=== PATIENT | male | born 1990 | race Caucasian/White ===

== ENCOUNTER 2020-04-09 19:49 | Emergency (ER) | payer SELFPAY ==
[~2020-04-09] VITALS: Ht 170.2 cm; Wt 68.0 kg
[2020-04-09 19:54] VITALS: BP 117/83
[2020-04-09] MEDS ORDERED: ONDANSETRON 4 MG ODT PO ONE (20:10)
--- NOTE | 2020-04-09 20:48 | NUR ---
AMBULATED TO ER BED 4
[2020-04-09 21:30] VITALS: BP 117/83
== END 2020-04-09 21:30 | disposition home or self-care (01) ==
LOC: EDBD → MED 19:49
DX: R11.2 Nausea with vomiting, unspecified (principal); Z88.8 Allergy status to other drugs, medicaments and biological substances
CPT/HCPCS: 99283; Q0162

== ENCOUNTER 2020-04-10 19:42 | Inpatient (IN) | payer MEDICAID, SELFPAY ==
[~2020-04-10] VITALS: Ht 167.6 cm; Wt 72.1 kg
[2020-04-10 19:45] VITALS: BP 130/99
--- NOTE | 2020-04-10 19:48 | NUR ---
TO LOBBY A/W BED AMBULATORY
--- NOTE | 2020-04-10 20:05 | NUR ---
PT TAKEN TO ER BED 5 VIA W/C.
--- NOTE | 2020-04-10 20:15 | NUR ---
29 Y/O MALE BIB SELF WITH C/O EPIGASTRIC PAIN AND VOMITING X 4 DAYS, PT STATES HE CAME IN YESTERDAY AND WAS GIVEN ONDASENTRON FOR THE EXCESSIVE VOMITING WITH INEFFECTIVE RESULTS. HE REPORTS ALSO HAVING CONSTIPATION AND NOT BEING ABLE TO GO TO THE BATHROOM X 4 DAYS. ABDOMEN WAS FLAT SOFT AND NON-DISTENDED. HE WAS OBSERVED GUARDING AREA. BOWEL SOUNDS WERE ACTIVE X4 QUADRANTS. BED WAS LOCKED AND PLACED IN LOWEST POSITION. SIDE RAIL UP X 1. PMHX: DIABETES ALLX: METOCLOPRAMINE
--- NOTE | 2020-04-10 20:36 | NUR ---
22 G IV SITE ESTABLISHED TO R AC, SITE WAS PATENT FLUSHED WITH 10 ML OF 0.9% NS. NO REDNESS, SWELLING OR ONFILTARTION NOTED. BLOOD WAS DRAWN.
--- NOTE | 2020-04-10 20:47 | NUR ---
IRAIS COLLIER AT BEDSIDE EVALUATING PT.
--- NOTE | 2020-04-10 21:00 | NUR ---
SIA SWAB COLLECTED AND WALKED TO LAB.
[2020-04-10] MEDS ORDERED: NACL 0.9% 1,000 ML IV ONE ×2 (21:10→22:15)
[2020-04-10 21:33] LABS: BASOPHILS % (AUTO) 0.2 % (0.0-2.0); LYMPHOCYTES # (AUTO) 0.7 K/uL (2.0-11.5); LYMPHOCYTES % (AUTO) 14.8 % (20.5-51.1); MEAN CORPUSCULAR HEMOGLOBIN 29 pg (27-31); MEAN CORPUSCULAR HGB CONC 33 g/dL (33-37); MEAN CORPUSCULAR VOLUME 86.7 fL (80-94); MONOCYTES # (AUTO) 0.5 K/uL (0.8-1.0); MONOCYTES % (AUTO) 11.5 % (1.7-9.3); NEUTROPHILS # (AUTO) 3.4 K/uL (1.8-7.7); NEUTROPHILS % (AUTO) 73.5 % (42.2-75.2); PLATELET COUNT (AUTO) 217 K/uL (140-450); RED BLOOD CELL COUNT(AUTO) 4.85 MIL/uL (4.20-6.10); RED CELL DISTRIBUTION WIDTH 12.9 % (11.6-13.7); WHITE BLOOD COUNT (AUTO) 4.7 K/uL (4.8-10.8)
--- NOTE | 2020-04-10 21:43 | NUR ---
US BEING DONE AT BEDSIDE.
--- NOTE | 2020-04-10 21:47 | NUR ---
PT PROVIDED UA SAMPLE AND EMPTIED URINAL WITH 600 ML OF CLEAR YELLOW URINE.
[2020-04-10 21:52] LABS: ALBUMIN 2.9 g/dL (3.4-5.0); ANION GAP 25.2 (8-16); ASPARTATE AMINOTRANSFERASE 18 U/L (15-37); CARBON DIOXIDE 14.6 mmol/L (21-32); CHLORIDE 94 mmol/L (98-107); GFR ARICAN-AMERICAN 51 mL/min (>90); LIPASE 133 U/L (73-393); POTASSIUM 4.8 mmol/L (3.5-5.1); SODIUM SERUM 129 mmol/L (136-145); TOTAL BILIRUBIN 0.4 mg/dL (0.0-1.0); UREA NITROGEN, BLOOD 23 mg/dL (7-18)
[2020-04-10 21:55] LABS: GLUCOSE 451 mg/dL (74-106)
[2020-04-10 21:56] LABS: ACETONE, SERUM SMALL (NEGATIVE)
--- NOTE | 2020-04-10 22:01 | NUR ---
CRITICAL LAB---GLUCOSE 451 & ACETONE (+) SMALL. NOTIFIED DR. COOK GAVE NO NEW ORDERS AT THIS TIME.
[2020-04-10 22:20] LABS: APPEARANCE,URINE HAZY (CLEAR); BILIRUBIN,URINE 1+ (NEGATIVE); BLOOD, URINE 3+ (NEGATIVE); COLOR,URINE YELLOW (YELLOW); LEUKOCYTE ESTERASE ,URINE NEGATIVE (NEGATIVE); NITRITE, URINE NEGATIVE (NEGATIVE); PH,URINE 5.5 (5.0-9.0); UGLUCOSE 3+ (NEGATIVE)
--- NOTE | 2020-04-10 22:27 | NUR ---
Respiratory Therapist at bedside for ABG blood draw.
[2020-04-10 22:29] LABS: WBC,URINE 0 /HPF (0-5)
--- NOTE | 2020-04-10 22:43 | NUR ---
CRITICAL LAB---SIA COVID (+). NOTIFIED DR. COOK GAVE NO NEW ORDERS.
[2020-04-10] MEDS ORDERED: INSULIN REGULAR, HUMAN 100 UNIT/ML VIAL IVP ONE (22:45)
--- NOTE | 2020-04-10 22:50 | NUR ---
PT MOVED TO BED #8
[2020-04-10] MEDS ORDERED: ONDANSETRON 4 MG TAB PO PRN (23:15)
[2020-04-10] MEDS ORDERED: DEXT 5% / NACL 0.45% 1,000 ML IV PRN (23:40)
[2020-04-10] MEDS ORDERED: INSULIN REGULAR, HUMAN 100 UNIT in NACL 0.9% 100 ML IV SCH ×2 (23:40)
[2020-04-10] MEDS ORDERED: BLOOD GLUCOSE MONITORING 1 DEV DEV FS SCH (23:47)
[2020-04-11] VITALS (21 sets, daily range): BP systolic 74–117; BP diastolic 46–84
--- NOTE | 2020-04-11 00:27 | NUR ---
ATTEMPTED TO CALL [facility] () ----> [phone]. NO ANSWER AT THIS TIME VOICEMAIL LEFT.
--- NOTE | 2020-04-11 00:40 | NUR ---
ACCUCHECK AT 250.
--- NOTE | 2020-04-11 00:45 | NUR ---
Patient will be admitted to care of Dr. Wood. Admited to ICU. Will go to room 5. Belongings list completed. Report given to DAVID RN AT BEDSIDE FOR CONTINUITY OF CARE. ALL COVID PRECAUTIONS IN PLACE.
--- NOTE | 2020-04-11 01:00 | NUR ---
ADMITTED FROM ER [facility] DIAGNOSIS OF DKA PATIENT IS AWAKE ALERT AND ORIENTED IN NO ACUTE DISTRESS PATIENT IS IN SINUS TACH ,RESPIRATION IS REGULAR SKIN IS VERY DRY ACCORDING TO PATIENT HE HAS BEEN VOMITING AT HOME BUT IN ER THERE IS NO VOMITING EPISODE.IV IS IN RIGHT ANTECUBIT STARTED TO INFUSE NORMAL SALINE AT 150CC/HR.BLOOD SUGAR CHECK IS 289.INSULIN DRIP COMMENCE.ACCORDING TO PROTOCOL.
[2020-04-11] MEDS: NACL 0.9% 1,000 ML IV SCH ×4 (01:30→22:10)
[2020-04-11] MEDS ORDERED: INSULIN REGULAR, HUMAN 100 UNIT in NACL 0.9% 100 ML IV SCH ×2 (02:15)
[2020-04-11] MEDS: BLOOD GLUCOSE MONITORING 1 DEV DEV FS SCH ×21 (03:04→23:56)
[2020-04-11 06:18] LABS: BASOPHILS % (AUTO) 0.1 % (0.0-2.0); HEMATOCRIT 34.3 % (36-52); HEMOGLOBIN 11.4 g/dL (12.0-18.0); LYMPHOCYTES # (AUTO) 0.6 K/uL (2.0-11.5); LYMPHOCYTES % (AUTO) 16.6 % (20.5-51.1); MEAN CORPUSCULAR HEMOGLOBIN 29 pg (27-31); MEAN CORPUSCULAR HGB CONC 33 g/dL (33-37); MEAN CORPUSCULAR VOLUME 85.8 fL (80-94); MONOCYTES # (AUTO) 0.2 K/uL (0.8-1.0); MONOCYTES % (AUTO) 4.9 % (1.7-9.3); NEUTROPHILS # (AUTO) 2.9 K/uL (1.8-7.7); NEUTROPHILS % (AUTO) 78.4 % (42.2-75.2); PLATELET COUNT (AUTO) 188 K/uL (140-450); WHITE BLOOD COUNT (AUTO) 3.6 K/uL (4.8-10.8)
[2020-04-11 06:24] LABS: PHOSPHORUS 2.7 mg/dL (2.5-4.9)
[2020-04-11 06:42] LABS: ALBUMIN 2.2 g/dL (3.4-5.0); ANION GAP 30.2 (8-16); CREATININE 1.7 mg/dL (0.6-1.3); POTASSIUM 4.4 mmol/L (3.5-5.1); TOTAL BILIRUBIN 0.4 mg/dL (0.0-1.0)
[2020-04-11 06:52] LABS: CARBON DIOXIDE 9.2 mmol/L (21-32)
[2020-04-11] MEDS ORDERED: LORazepam 2 MG/ML VIAL IM/IVP PRN (07:05)
[2020-04-11] MEDS ORDERED: DOCUSATE SODIUM 100 MG GELCAP PO PRN (07:05)
[2020-04-11] MEDS ORDERED: MORPHINE SULFATE 2 MG/ML SYR IVP PRN (07:05)
[2020-04-11] MEDS ORDERED: HYDROcodone/APAP 5/325 MG 1 TAB TAB PO PRN (07:05)
[2020-04-11] MEDS ORDERED: ZOLPIDEM 5 MG TAB PO PRN (07:05)
[2020-04-11] MEDS ORDERED: ACETAMINOPHEN 325 MG TAB PO PRN (07:05)
[2020-04-11] MEDS ORDERED: ONDANSETRON 4 MG/2 ML VIAL IVP PRN (07:05)
[2020-04-11] MEDS ORDERED: ALBUTEROL HFA MDI 90 MCG/ACTUATION 8 GM INH PRN (07:05)
[2020-04-11 08:54] LABS: PROTHROMBIN TIME 10.7 secs (10.8-13.4)
[2020-04-11 08:56] LABS: MAGNESIUM 2.2 mg/dL (1.8-2.4); PHOSPHORUS 2.8 mg/dL (2.5-4.9)
[2020-04-11] MEDS: ZINC SULF 220 MG CAP PO SCH ×2 (09:00→09:34)
[2020-04-11] MEDS ORDERED: AZITHROMYCIN 250 MG TAB PO SCH (09:00)
[2020-04-11] MEDS: VITAMIN D 400 IU TAB PO SCH ×2 (09:00→09:34)
--- NOTE | 2020-04-11 09:04 | NUR ---
PATIENT HAS BEEN SCREENED AND CATEGORIZED HIGH NUTRITION RISK. PATIENT WILL BE SEEN WITHIN 1-2 DAYS OF ADMISSION. 04/11/20-04/12/[address]
[2020-04-11 09:06] LABS: ALBUMIN 2.1 g/dL (3.4-5.0); ANION GAP 19.6 (8-16); CARBON DIOXIDE 16.3 mmol/L (21-32); CHOL/HDL RATIO 5.7 (1-4.5); CREATININE 1.7 mg/dL (0.6-1.3); FREE T4 (FREE THYROXINE) 1.09 ng/dL (0.76-1.46); POTASSIUM 3.9 mmol/L (3.5-5.1); THYROID STIMULATING HORMONE 0.63 uIU/mL (0.34-3.74); TOTAL BILIRUBIN 0.2 mg/dL (0.0-1.0)
[2020-04-11] MEDS: ASCORBIC ACID 500 MG TAB PO SCH (09:34)
[2020-04-11] MEDS: ENOXAPARIN 40 MG/0.4 ML SYR SUBQ SCH (09:35)
--- NOTE | 2020-04-11 11:39 | NUR ---
DISCHARGE PLANNING: THIS IS A 29 Y/O MALE PATIENT FROM HOME, WHO CAME IN DUE TO CONSTANT NON BLOODY VOMITING. PAST MEDICAL HISTORY INCLUDE DIABETES. INITIAL DIAGNOSIS OF COVID, DEHYDRATION, HYPERGLYCEMIA, VOMITING. CURRENT LABS INCLUDE WBC 3.6, H/H 11.4/34.3, NA/K 138/3.9, BUN/CREA 19/1.7, ANION GAP 19.6. COVID POSITIVE. ON ROOM AIR, O2 SAT 96%. ON DECADRON, AZITHROMYCIN, ROCEPHIN. NEPHRO AND PULMO CONSULTS IN PLACE. DC PLAN PENDING ON PATIENT'S RESPONSE TO TREATMENT.
--- NOTE | 2020-04-11 12:01 | NUR ---
SOCIAL WORK NOTE: Patient's Orientation Unable To Assess Information Provided By [facility] [place] - Comments SW WAS UNABLE TO MEET PATIENT AT BEDSIDE. SW CONTACTED PATIETN'S FATHER KATERIN PATEL WHO PROVIDED PHONE NUMBER TO PATIENT'S , [facility] [place]. SW COMPLETED ASSESSMENT WITH . SW USED SECURITY AND PRIVACY CONSULTANT MEEK [id number]. Electrical System Specialist, Realtionship and Phone Number KATERIN PATEL FATHER [phone] [facility] [place] [phone] Healthcare Power of Able Bodied Watchman No Does Patient Have a POLST No Identifying Problems No Social Work Triggers Is A Social Work Consult Needed No Mandate Report Filed No Explanation Of Identifying Problems PATIENT IS A 29-YEAR-OLD MALE ADMITTED FOR COVID AND DEHYDRATION. PATIENT HAS PMHX OF DIABETES. Admitted From Home Pre-Admission Level Of Functioning Status Independent With DME Prior Resources/Services Used In Last 12 Months No Prior Resources Used Prior DME [facility] Dialysis Comments N/A Living Situation Apartment Lives With Family Patient Had Caregiver No Home Support No Caregiver Issues Financial Issues No Known Financial Issue Referral To The Financial Counselor Needed No Factors/Needs No D/C Needs Identified Pt/Rep Participated In Discharge Plan Yes Patient/Family Agress With Discharge Plan Yes Discharge Plan Comments TENTATIVE DISCHARGE PLAN IS FOR PATIENT TO RETURN HOME. DC Plan Status Initiated
[2020-04-11 13:42] LABS: ANION GAP 16.9 (8-16); CARBON DIOXIDE 20.9 mmol/L (21-32); CREATININE 1.5 mg/dL (0.6-1.3); POTASSIUM 3.8 mmol/L (3.5-5.1)
[2020-04-11 13:46] LABS: PHOSPHORUS 2.7 mg/dL (2.5-4.9)
[2020-04-11] MEDS: DEXT 5% / NACL 0.45% 1,000 ML IV SCH ×3 (14:00→22:08)
--- NOTE | 2020-04-11 14:09 | NUR ---
04/11/20 RD INITIAL ASSESSMENT COMPLETED PLEASE REFER TO NUTRITION ASSESSMENT UNDER CARE ACTIVITY FOR ESTIMATED NUTRITIONAL NEEDS. 1. CONTINUE NOTHING BY MOUTH 2. IF/WHEN MEDICALLY STABLE CONSIDER ADVANCING TO [facility] [address] TO PROVIDE NUTRITION EDUCATION ON DIABETES DURING FOLLOW UP VISIT 4. RD TO FOLLOW-UP 2-3 DAYS, HIGH RISK IJEOMA ARCEO, RD
--- NOTE | 2020-04-11 14:40 | NUR ---
at 1440 Dr Garcia was called to inform acucheck at 1400 as 130mg and will inform anion gap result
[2020-04-11 16:39] LABS: ANION GAP 16.8 (8-16); CARBON DIOXIDE 20.8 mmol/L (21-32); CREATININE 1.4 mg/dL (0.6-1.3); POTASSIUM 3.6 mmol/L (3.5-5.1)
[2020-04-11 16:44] LABS: PHOSPHORUS 1.8 mg/dL (2.5-4.9)
--- NOTE | 2020-04-11 19:15 | NUR ---
RECEIVED PT FROM DAYSHIFT RN, AT [facility], FOR CONTINUITY OF CARE. PT AWAKE, A/O X4. KHMER-SPEAKING ONLY. PUPILS 3MM, PERRL. DENIES PAIN UPON QUESTIONING.LUNG SOUNDS COARSE THROUGHOUT. SPO2 >92%, RA. +S1, S2 NOTED. SR ON MONITOR. BOWEL SOUNDS ACTIVE X4. NO ABD DISTENTION NOTED. PERIPHERAL IV TO RT AC PATENT, INFUSING REGULAR INSULIN DRIP, AND NS, PER PROTOCOL. SEE IV SPREADSHEET. PT ABLE TO USE URINAL INDEPENDENTLY. SKIN WARM, DRY, AND INTACT. SAFETY PRECAUTIONS REMAIN IN PLACE WITH BED LOW AND LOCKED. CALL LIGHT IN EASY REACH. EDUCATED PT ON IMPORTANCE OF USING CALL LIGHT TO REQUEST ASSISTANCE. WILL CONT TO MONITOR.
[2020-04-11 20:19] LABS: ANION GAP 15.1 (8-16); CARBON DIOXIDE 21.1 mmol/L (21-32); CREATININE 1.4 mg/dL (0.6-1.3); POTASSIUM 4.2 mmol/L (3.5-5.1)
[2020-04-11 20:25] LABS: MAGNESIUM 2.8 mg/dL (1.8-2.4)
[2020-04-11 21:40] LABS: BARBITURATE, URINE NEGATIVE ng/ml (NEG <=200); BENZODIAZEPINE, URINE NEGATIVE ng/mL (NEG <=200); CANNABINOID, URINE NEGATIVE ng/mL (NEG <=50); COCAINE, URINE NEGATIVE ng/mL (NEG <=300); OPIATE, URINE NEGATIVE ng/mL (NEG <=2000); PHENCYCLIDINE SCREEN,URINE NEGATIVE ng/mL (NEG <=25)
--- NOTE | 2020-04-11 22:35 | NUR ---
PT TRANSPORTED TO CT VIA W/C WITH 2 RNS @ THIS TIME, CONNECTED TO TRANSPORT MONITOR.
--- NOTE | 2020-04-11 22:50 | NUR ---
PT RETURNED FROM CT AT THIS TIME.
--- NOTE | 2020-04-11 23:00 | NUR ---
COVID PCR SWAB COLLECTED AT THIS TIME. PT TOLERATED WELL. TAKEN TO LAB
[2020-04-12] VITALS (31 sets, daily range): BP systolic 98–145; BP diastolic 51–84
[2020-04-12] MEDS: BLOOD GLUCOSE MONITORING 1 DEV DEV FS SCH ×20 (00:05→21:05)
[2020-04-12 00:32] LABS: ANION GAP 14.4 (8-16); CARBON DIOXIDE 23.3 mmol/L (21-32); CREATININE 1.3 mg/dL (0.6-1.3); POTASSIUM 3.7 mmol/L (3.5-5.1)
[2020-04-12 00:35] LABS: MAGNESIUM 1.9 mg/dL (1.8-2.4); PHOSPHORUS 2.9 mg/dL (2.5-4.9)
--- NOTE | 2020-04-12 01:50 | NUR ---
URINE SODIUM COLLECTED AND TAKEN TO LAB @ THIS TIME.
[2020-04-12] MEDS: DEXT 5% / NACL 0.45% 1,000 ML IV SCH ×3 (04:35→18:00)
[2020-04-12] MEDS: NACL 0.9% 1,000 ML IV SCH ×3 (05:07→22:41)
--- NOTE | 2020-04-12 06:05 | NUR ---
PT C/O OF HEADACHE @ 610 PAIN. REPOSITIONED. NON-PHARMACOLOGIC INTERVENTIONS INEFFECTIVE. MEDICATED ORDERED.
[2020-04-12 07:03] LABS: ANION GAP 15.1 (8-16); CARBON DIOXIDE 21.6 mmol/L (21-32); CREATININE 1.2 mg/dL (0.6-1.3); POTASSIUM 3.7 mmol/L (3.5-5.1)
--- NOTE | 2020-04-12 07:16 | NUR ---
REPORT GIVEN TO MELIA RN, AT WINDOW, FOR CONTINUITY OF CARE. IV SITE PATENT AT THIS TIME.
[2020-04-12 08:48] LABS: PHOSPHORUS 3.2 mg/dL (2.5-4.9)
[2020-04-12 08:53] LABS: ANION GAP 14.6 (8-16); CARBON DIOXIDE 22.2 mmol/L (21-32); CREATININE 1.2 mg/dL (0.6-1.3); POTASSIUM 3.8 mmol/L (3.5-5.1)
[2020-04-12 08:57] LABS: MAGNESIUM 1.5 mg/dL (1.8-2.4); PHOSPHORUS 3.3 mg/dL (2.5-4.9)
[2020-04-12] MEDS: ZINC SULF 220 MG CAP PO SCH ×2 (09:08→20:40)
[2020-04-12] MEDS: AZITHROMYCIN 250 MG TAB PO SCH (09:08)
[2020-04-12] MEDS: ASCORBIC ACID 500 MG TAB PO SCH (09:08)
[2020-04-12] MEDS: ENOXAPARIN 40 MG/0.4 ML SYR SUBQ SCH (09:10)
[2020-04-12] MEDS: VITAMIN D 400 IU TAB PO SCH (09:11)
[2020-04-12 10:04] LABS: BASOPHILS % (AUTO) 0.1 % (0.0-2.0); HEMATOCRIT 33.1 % (36-52); LYMPHOCYTES % (AUTO) 30.2 % (20.5-51.1); MEAN CORPUSCULAR HEMOGLOBIN 28 pg (27-31); MEAN CORPUSCULAR HGB CONC 33 g/dL (33-37); MEAN CORPUSCULAR VOLUME 85.4 fL (80-94); MONOCYTES # (AUTO) 0.5 K/uL (0.8-1.0); MONOCYTES % (AUTO) 16.7 % (1.7-9.3); NEUTROPHILS # (AUTO) 1.7 K/uL (1.8-7.7); PLATELET COUNT (AUTO) 189 K/uL (140-450); RED BLOOD CELL COUNT(AUTO) 3.88 MIL/uL (4.20-6.10); RED CELL DISTRIBUTION WIDTH 13.1 % (11.6-13.7); WHITE BLOOD COUNT (AUTO) 3.2 K/uL (4.8-10.8)
[2020-04-12 11:35] LABS: MAGNESIUM 1.9 mg/dL (1.8-2.4); PHOSPHORUS 3.2 mg/dL (2.5-4.9)
[2020-04-12 11:49] LABS: ALBUMIN 2.1 g/dL (3.4-5.0); ANION GAP 13.1 (8-16); CARBON DIOXIDE 23.8 mmol/L (21-32); CREATININE 1.2 mg/dL (0.6-1.3); POTASSIUM 3.9 mmol/L (3.5-5.1); TOTAL BILIRUBIN 0.2 mg/dL (0.0-1.0)
[2020-04-12 13:47] LABS: ANION GAP 12.9 (8-16); CREATININE 1.2 mg/dL (0.6-1.3); POTASSIUM 3.9 mmol/L (3.5-5.1)
[2020-04-12 13:51] LABS: MAGNESIUM 1.9 mg/dL (1.8-2.4); PHOSPHORUS 3.2 mg/dL (2.5-4.9)
[2020-04-12 16:23] LABS: ANION GAP 11.3 (8-16); CARBON DIOXIDE 26.1 mmol/L (21-32); CREATININE 1.2 mg/dL (0.6-1.3); POTASSIUM 3.4 mmol/L (3.5-5.1)
[2020-04-12 16:28] LABS: MAGNESIUM 1.9 mg/dL (1.8-2.4); PHOSPHORUS 2.8 mg/dL (2.5-4.9)
[2020-04-12] MEDS ORDERED: POTASSIUM CHLORIDE 10 MEQ TABER PO SCH ×2 (16:40→16:41)
--- NOTE | 2020-04-12 19:15 | NUR ---
RECEIVED PT FROM DAYSHIFT RN, AT [facility], FOR CONTINUITY OF CARE. PT AWAKE, A/O X4. LIBYAN-SPEAKING ONLY. PUPILS 3MM, PERRL. DENIES PAIN UPON QUESTIONING. LUNG SOUNDS COARSE THROUGHOUT. SPO2 >92%, RA. +S1, S2 NOTED. SR ON MONITOR. BOWEL SOUNDS ACTIVE X4. NO ABD DISTENTION NOTED. HARSHAL PICC IN PLACE INFUSING REGULAR INSULIN DRIP, AND D5 1/2 NS, PER PROTOCOL. SEE IV SPREADSHEET. PT ABLE TO USE URINAL INDEPENDENTLY. SKIN WARM, DRY, AND INTACT. SAFETY PRECAUTIONS REMAIN IN PLACE WITH BED LOW AND LOCKED. CALL LIGHT IN EASY REACH. EDUCATED PT ON IMPORTANCE OF USING CALL LIGHT TO REQUEST ASSISTANCE. WILL CONT TO MONITOR FOR CHANGES.
[2020-04-12 20:09] LABS: ANION GAP 11.4 (8-16); CARBON DIOXIDE 24.4 mmol/L (21-32); CREATININE 1.1 mg/dL (0.6-1.3); POTASSIUM 3.8 mmol/L (3.5-5.1)
[2020-04-12 20:14] LABS: MAGNESIUM 1.9 mg/dL (1.8-2.4)
[2020-04-12 21:08] LABS: CREATININE,URINE RANDOM 35 mg/dL (30-125); URINE SODIUM, RANDOM 29 mmol/l (40-220)
--- NOTE | 2020-04-12 21:33 | NUR ---
CALL PLACED TO DR BULLARD R/T CLOSED ANION GAP X2 AND BLOOD SUGARS WNL. NEW ORDERS OBTAINED AND IMPLEMENTED. WILL FOLLOW-UP.
--- NOTE | 2020-04-12 22:03 | NUR ---
PT DOWNGRADED TO TELE STATUS, PER DR BULLARD. REPORT GIVEN TO JERSEY RIGGINS AT THIS TIME.
--- NOTE | 2020-04-12 22:15 | NUR ---
PT TRANSFERRED TO [facility] ROOM 107B, TRANSFERRED RESPONSIBILITY OF CARE TO JERSEY RIGGINS AT THIS TIME. PICC LINE PATENT. VSS.
--- NOTE | 2020-04-12 22:30 | NUR ---
RECEIVED REPORT FROM ICU NURSE VIDHI. PT AOX4 ON ROOM AIR, NO S/S RESPIRATORY DISTRESS. NO C/O PAIN AT THIS TIME. HAS HARSHAL PICC, PATENT AND INTACT. SAFETY MEASURES IN PLACE. CALL LIGHT WITHIN REACH. WILL CONTINUE TO MONITOR
[2020-04-13] VITALS: BP 116/71
--- NOTE | 2020-04-13 00:20 | NUR ---
PT ASLEEP IN BED. NO S/S ACUTE DISTRESS NOTED. WILL CONTINUE TO MONITOR
[2020-04-13 04:00] VITALS: BP 98/65
[2020-04-13] MEDS ORDERED: DEXTROSE 50% 50 ML SYR IVP PRN (05:20)
[2020-04-13] MEDS: BLOOD GLUCOSE MONITORING 1 DEV DEV FS SCH ×4 (05:29→23:39)
[2020-04-13] MEDS: INSULIN LISPRO SLIDING SCALE 100 UNITS/ML VIAL SUBQ PRN ×4 (06:28→23:45)
--- NOTE | 2020-04-13 06:35 | NUR ---
GAVE 8 UNITS INSULIN SUBQ FOR BLOOD SUGAR 349. TOLERATED WELL, WILL CONTINUE TO MONITOR
--- NOTE | 2020-04-13 07:35 | NUR ---
ENDORSED PT TO DAY RN FOR CONTINUITY OF CARE. PT IS IN STABLE CONDITION
[2020-04-13] MEDS: NACL 0.9% 1,000 ML IV SCH ×2 (08:26→18:37)
[2020-04-13 08:42] VITALS: BP 113/60
--- NOTE | 2020-04-13 08:47 | NUR ---
Patient awake, alert and oriented able to verbalize needs. Complaints of mild abdominal pain but denies medication. Vitals stable and breathing easy at room air, no fever or chills. Able to ambulate and turn himself in bed. Skin intact and remains in bed with safety co measures in place, call light, bed lowered and bed alarm activated.
[2020-04-13] MEDS: AZITHROMYCIN 250 MG TAB PO SCH (09:51)
[2020-04-13] MEDS: VITAMIN D 400 IU TAB PO SCH (09:51)
[2020-04-13] MEDS: ZINC SULF 220 MG CAP PO SCH ×2 (09:52→23:38)
[2020-04-13] MEDS: ASCORBIC ACID 500 MG TAB PO SCH (09:52)
[2020-04-13] MEDS: ENOXAPARIN 40 MG/0.4 ML SYR SUBQ SCH (09:54)
[2020-04-13 12:00] VITALS: BP 112/83
--- NOTE | 2020-04-13 13:40 | NUR ---
blood sugar elevated and patient was given 10 unit of insulin see May.
[2020-04-13 16:00] VITALS: BP 109/73
--- NOTE | 2020-04-14 02:16 | NUR ---
PT SEEN AND ASSESSED. PT ON ROOM AIR WITH SPO2 98%. PT IN NO RESPIRATORY DISTRESS AT THIS TIME. WILL CONTINUE TO MONITOR PT.
[2020-04-14] MEDS: BLOOD GLUCOSE MONITORING 1 DEV DEV FS SCH ×2 (08:47→13:15)
[2020-04-14] MEDS: INSULIN LISPRO SLIDING SCALE 100 UNITS/ML VIAL SUBQ PRN ×2 (08:48→18:11)
[2020-04-14 09:14] LABS: BASOPHILS % (AUTO) 0.1 % (0.0-2.0); HEMATOCRIT 34.1 % (36-52); HEMOGLOBIN 11.5 g/dL (12.0-18.0); LYMPHOCYTES # (AUTO) 1.5 K/uL (2.0-11.5); LYMPHOCYTES % (AUTO) 38.4 % (20.5-51.1); MEAN CORPUSCULAR HEMOGLOBIN 29 pg (27-31); MEAN CORPUSCULAR HGB CONC 34 g/dL (33-37); MEAN CORPUSCULAR VOLUME 84.8 fL (80-94); MONOCYTES # (AUTO) 0.4 K/uL (0.8-1.0); MONOCYTES % (AUTO) 10.6 % (1.7-9.3); NEUTROPHILS % (AUTO) 50.9 % (42.2-75.2); PLATELET COUNT (AUTO) 230 K/uL (140-450); RED BLOOD CELL COUNT(AUTO) 4.02 MIL/uL (4.20-6.10); RED CELL DISTRIBUTION WIDTH 12.9 % (11.6-13.7)
[2020-04-14 10:19] LABS: ALBUMIN 2.2 g/dL (3.4-5.0); ANION GAP 12.2 (8-16); CARBON DIOXIDE 27.9 mmol/L (21-32); MAGNESIUM 1.9 mg/dL (1.8-2.4); PHOSPHORUS 3.5 mg/dL (2.5-4.9); POTASSIUM 4.1 mmol/L (3.5-5.1); TOTAL BILIRUBIN 0.3 mg/dL (0.0-1.0)
[2020-04-14] MEDS: ASCORBIC ACID 500 MG TAB PO SCH (11:02)
[2020-04-14] MEDS: ZINC SULF 220 MG CAP PO SCH (11:02)
[2020-04-14] MEDS: VITAMIN D 400 IU TAB PO SCH (11:02)
[2020-04-14] MEDS: AZITHROMYCIN 250 MG TAB PO SCH (11:03)
[2020-04-14] MEDS: NACL 0.9% 1,000 ML IV SCH (11:05)
[2020-04-14] MEDS: ENOXAPARIN 40 MG/0.4 ML SYR SUBQ SCH (11:05)
[2020-04-14] MEDS ORDERED: AZIT250T3 PO (11:54)
[2020-04-14] MEDS ORDERED: ASPI-1205 PO (11:54)
[2020-04-14] MEDS ORDERED: DEC1 PO (11:54)
[2020-04-14] MEDS ORDERED: METF1000 PO (11:55)
[2020-04-14] MEDS ORDERED: GLIP10TA3 PO (11:55)
--- NOTE | 2020-04-14 12:33 | NUR ---
Blood sugar 426. Called Dr Kennedy and given orders for Glipzide and metformin. Patient also to take 12 units of insulin.
[2020-04-14] MEDS ORDERED: glipiZIDE 10 MG TAB PO SCH (13:00)
[2020-04-14] MEDS ORDERED: metFORMIN 500 MG TAB PO SCH (13:00)
[2020-04-14] MEDS ORDERED: INSULIN LISPRO 100 UNITS/ML VIAL SUBQ SCH (13:00)
[2020-04-14 17:02] VITALS: BP 111/72
[2020-04-14 17:04] VITALS: BP 110/56
--- NOTE | 2020-04-14 17:27 | NUR ---
04/14/20 RD INITIAL ASSESSMENT COMPLETED PLEASE REFER TO NUTRITION ASSESSMENT UNDER CARE ACTIVITY FOR ESTIMATED NUTRITIONAL NEEDS. 1. CONTINUE CCHO [address] PROVIDED DIABETES NUTRITION EDUCATION AND COVID-19 NUTRITION EDUCATION HANDOUTS 3. RD TO FOLLOW-UP 3-5 DAYS, MODERATE RISK IJEOMA ARCEO RD
--- NOTE | 2020-04-14 18:39 | NUR ---
Patient educated via chinese speaker on Diabetes, medications and importance of following up with another Physician within three-five days. Patient started on three medications Glipizide, Metformin and Increased the dose of Humalog. Patient given a package on all topics regarding diabetes, diet and all questions regarding discharge answered and verbalized understanding. Taken off the unit through front door into private care.
== END 2020-04-14 18:20 | disposition home or self-care (01) | DRG 720 ==
LOC: EDBD 19:42 → MED 19:42 → MTU 23:28 → MIC 04-11 00:03 → MTU 04-12 22:23
PROVIDERS: ADMIT Family Medicine; ATTEND Family Medicine
PROC: 02HV33Z Insertion of Infusion Device into Superior Vena Cava, Percutaneous Approach (ICD-10-PCS; principal; 2020-04-12)
PROC: B548ZZA Ultrasonography of Superior Vena Cava, Guidance (ICD-10-PCS; 2020-04-12)
DX: A41.9 Sepsis, unspecified organism (principal); U07.1 COVID-19; N17.0 Acute kidney failure with tubular necrosis; E43 Unspecified severe protein-calorie malnutrition; E87.1 Hypo-osmolality and hyponatremia; J12.82 Pneumonia due to coronavirus disease 2019; J96.01 Acute respiratory failure with hypoxia; Z88.8 Allergy status to other drugs, medicaments and biological substances; Z68.25 Body mass index [BMI] 25.0-25.9, adult; E11.10 Type 2 diabetes mellitus with ketoacidosis without coma; D63.8 Anemia in other chronic diseases classified elsewhere; E86.0 Dehydration
CPT/HCPCS: 36415; 36600; 71045; 76705; 76770; 80048; 80053; 80305; 81001; 82009; 82150; 82550; 82570; 82803; 82948; 83036; 83605; 83615; 83690; 83735; 83880; 84100; 84300; 84439; 84443; 84484; 85025; 85379; 85610; 85651; 85730; 86140; 87081; 93005; 96361; 96374; 99291; J0696; J1650; J1815; J2405; J7030; J7060; U0003